=== PATIENT | male | born 1990 | race African-American/Black ===

== ENCOUNTER 2017-01-19 11:57 | Emergency (ER) | payer MEDICAID ==
[~2017-01-19] VITALS: Ht 177.8 cm; Wt 65.8 kg
[2017-01-19 12:28] VITALS: BP 126/75
--- NOTE | 2017-01-19 12:47 | NUR ---
Dr. Benitez evaluating patient at bedside.
--- NOTE | 2017-01-19 12:47 | NUR ---
PATIENT PRESENTS TO ED WITH SPORTS INJURY TODAY, LEFT ANKLE AREA SWELLING INCREASED WARMTH TENDER UNABLE TO BEAR WEIGHT----- HX---DENIES RX---NONE; DENIES N/V/D; SKIN IS PINK/WARM/DRY; AAOX4; LUNGS CLEAR BL; HR EVEN AND REGULAR; PT DENIES ANY FEVER, CP, SOB, OR COUGH AT THIS TIME; PATIENT STATES PAIN OF 10/10 AT THIS TIME; VSS; PATIENT POSITIONED FOR COMFORT; HOB ELEVATED; BEDRAILS UP X2; BED DOWN. ER MD MADE AWARE OF PT STATUS.
[2017-01-19] MEDS ORDERED: HYDROcodone/APAP 5/325 MG 1 TAB TAB PO ONE (12:50)
[2017-01-19 13:30] VITALS: BP 131/81
--- NOTE | 2017-01-19 13:30 | NUR ---
Patient discharged with v/s stable. Written and verbal after care instructions given and explained. Patient alert, oriented and verbalized understanding of instructions. Ambulatory with [facility]. All questions addressed prior to discharge. ID band removed. Patient advised to follow up with PMD. Rx of NORCO, NAPROXEN given. Patient educated on indication of medication including possible reaction and side effects. Opportunity to ask questions provided and answered.
== END 2017-01-19 13:30 | disposition home or self-care (01) ==
LOC: MED 11:57
DX: S82.435A Nondisplaced oblique fracture of shaft of left fibula, initial encounter for closed fracture (principal); X58.XXXA Exposure to other specified factors, initial encounter; Y93.61 Activity, american tackle football; Y92.89 Other specified places as the place of occurrence of the external cause; Y99.8 Other external cause status
CPT/HCPCS: 73590; 73610; 99284; Q0092

== ENCOUNTER 2017-02-12 15:09 | Emergency (ER) | payer MEDICAID ==
[~2017-02-12] VITALS: Ht 177.8 cm; Wt 68.7 kg
[2017-02-12 15:37] VITALS: BP 115/52
--- NOTE | 2017-02-12 15:58 | NUR ---
patient to OF 3
--- NOTE | 2017-02-12 16:06 | NUR ---
PATIENT IS A 26 YO MALE BIB SELF WITH LARGE PLINT TO LFT LOWER LEG. NEED A REFILL FOR PAIN MEDS.
[2017-02-12 16:30] VITALS: BP 115/52
== END 2017-02-12 16:31 | disposition home or self-care (01) ==
LOC: MED 15:09
DX: Z76.0 Encounter for issue of repeat prescription (principal); S82.435D Nondisplaced oblique fracture of shaft of left fibula, subsequent encounter for closed fracture with routine healing; X58.XXXD Exposure to other specified factors, subsequent encounter
CPT/HCPCS: 99283

== ENCOUNTER 2017-02-17 13:23 | Emergency (ER) | payer MEDICAID ==
[~2017-02-17] VITALS: Ht 177.8 cm; Wt 68.0 kg
--- NOTE | 2017-02-17 13:38 | NUR ---
PT CALLED FOR TRIAGE NOT IN LOBBY.
[2017-02-17 13:47] VITALS: BP 120/59
--- NOTE | 2017-02-17 13:49 | NUR ---
PT TRIAGED, PT AMUBLATED BACK TO LOBBY WAITING FOR ER BED. ERMD NOTIFIED OF PATIENT STATUS.
--- NOTE | 2017-02-17 13:53 | NUR ---
PT AMBULATED TO ER BED 12.
--- NOTE | 2017-02-17 14:07 | NUR ---
DR. ANGELO AT BEDSIDE
--- NOTE | 2017-02-17 14:09 | NUR ---
6/M PRESENT TO ER C/O VOMITING BLOOD x TODAY @ 0900. HX: NONE MEDS:NONE, PER PT THE BLOOD IS ALOT WHEN HE VOMITTED, SKIN, WARM TO TOUCH RESP. EVEN AND UNLABORED, PT SLEEPY AT THIS TIME, ABDOMEN SOFT NON DISTENDED.
[2017-02-17] MEDS ORDERED: ONDANSETRON 4 MG ODT PO ONE (14:15)
--- NOTE | 2017-02-17 14:15 | NUR ---
PT CALM, EYES CLOSE, NOTED WITH BRACE ON LEFT LEG CLAIMED I WAS IN [place] TODAY AND THEY TOLD ME I DONT NEED SURGERY ON MY LEG AND AFTER THEY GAVE ME ANESTHESIA, I VOMITTED, NO VOMITTING NOTED AT THIS TIME.
[2017-02-17 15:03] VITALS: BP 120/59
--- NOTE | 2017-02-17 15:03 | NUR ---
Patient discharged with v/s stable. Written and verbal after care instructions given and explained. Patient alert, oriented and verbalized understanding of instructions. Ambulatory with steady gait. All questions addressed prior to discharge. ID band removed. Patient advised to follow up with PMD. Rx of zofran given. Patient educated on indication of medication including possible reaction and side effects. Opportunity to ask questions provided and answered. instructed to f/u with pmd--avoid etoh/coffee/spice/greasy foods
== END 2017-02-17 15:03 | disposition home or self-care (01) ==
LOC: MED 13:23
DX: K22.6 Gastro-esophageal laceration-hemorrhage syndrome (principal)
CPT/HCPCS: 99283; S0119